=== PATIENT | female | born 1960 | race Caucasian/White ===

== ENCOUNTER 2022-08-07 13:05 | Outpatient (CLI) | payer OTHER | END 2022-08-07 23:59 | disposition home or self-care (01) | LOC: LAB 13:05 | PROVIDERS: ATTEND Specialist | DX: Z75.3 Unavailability and inaccessibility of health-care facilities (principal) ==

== ENCOUNTER 2022-08-11 15:31 | Outpatient (CLI) | payer OTHER | END 2022-08-11 23:59 | disposition home or self-care (01) | LOC: LAB 15:31 | PROVIDERS: ATTEND Specialist | DX: Z01.812 Encounter for preprocedural laboratory examination (principal); Z20.822 Contact with and (suspected) exposure to COVID-19 | CPT/HCPCS: U0003; C9803 ==

== ENCOUNTER 2022-08-14 05:14 | Inpatient (IN) | payer OTHER ==
[~2022-08-14 05:14] MED LIST: ANESTHESIA TRAY IN PYXIS 1 EA TRAY MC ONE
[2022-08-14] MEDS ORDERED: MIDAZOLAM HCL 2 MG/2ML VIAL ONE (05:51)
[2022-08-14] MEDS ORDERED: HYDROMORPHONE INJ 2 MG/ML DISP.SYRIN ONE (05:51)
[2022-08-14] MEDS ORDERED: FENTANYL PF 250MCG/5ML AMPUL ONE (05:51)
[2022-08-14] MEDS ORDERED: BUPIVACAINE 0.5 % PF 150 MG/30 ML VIAL ONE ×2 (05:52→05:59)
[2022-08-14] MEDS ORDERED: FAMOTIDINE/PF INJ 20 MG/2 ML VIAL IV ONE (05:53)
[2022-08-14] MEDS ORDERED: ROCURONIUM BROMIDE 50 MG/5 ML ONE (05:53)
[2022-08-14] MEDS ORDERED: POLYMYXIN B SULFATE 500,000 UNITS ONE (05:59)
--- NOTE | 2022-08-14 06:05 | NUR ---
MS IT HELP DESK TECHNICIAN NOTE PATIENT ARRIVED TO THE UNIT AT AROUND 0540 FOR SCHEDULED LEFT SHOULDER TOTAL ARTHROPLASTY UNDER DR. CHEUNG. PATIENT IS ALERT AND ORIENTED X4. ABLE TO COMMUNICATE NEED WITH THE STAFFS. AFEBRILE AND NOT IN NAY FORM OF ACUTE DISTRESS. PER PATIENT, SHE'S BEEN FATING SINCE 2300 LAST NIGHT (NO FOOD AND WATER). PATIENT STATES THAT SHE IS ALLERGIC TO LUNESTA, LATEX AND STEROIDS. EXPLAINED PRE OP PROCEDURE AND CONSENT SIGNED AND SECURED. CHANGED TO HOSPITAL GOWN. VITALS TAKEN AND FOLLOWS: BP- 150/80, P- 96, T- 98.8, O2 SAT ON RA- 98%, BG- 104. INSERTED IV ACCESS ON R FOREARM 20G X1. PATIENT TOLERATED WELL. REPORT GIVEN TO OR STAFF. PATIENT WAS PICKED UP AT AROUND 0615 IN STABLE CONDITION WITH SOME OF HER BELONGINGS AND ACCOMPANIED BY HER MOM.
[2022-08-14] MEDS ORDERED: TRANEXAMIC ACID 3,000 MG in SODIUM CHLORIDE IRRIG SOLUTION 70 ML IR ONE (07:00)
[2022-08-14] MEDS ORDERED: ACETAMINOPHEN 325 MG TABLET PO PRN ×3 (09:30→18:30)
[2022-08-14] MEDS ORDERED: HYDROCODONE/APAP 5/325MG TABLET PO PRN ×2 (09:30→18:30)
[2022-08-14] MEDS ORDERED: ONDANSETRON HCL/PF 4 MG/2 ML VIAL IV PRN (10:00)
[2022-08-14] MEDS ORDERED: DOCUSATE SODIUM 250 MG CAPSULE PO PRN (10:00)
[2022-08-14] MEDS ORDERED: BISACODYL SUPP (10 MG) 10 MG/SUPP.RECT SUPP.RECT RC PRN (10:00)
[2022-08-14] MEDS ORDERED: SENNOSIDES 8.6 MG TABLET PO PRN (10:00)
--- NOTE | 2022-08-14 10:00 | NUR ---
MS RN NOTE: RECEIVED PATIENT FROM NITIN MANN. PT AAOX4. ABLE TO MAKE NEEDS KNOWN. ABLE TO DENY PAIN OR DISCOMFORT. ON 2LPM NC. NO SOB NO DYSPNEA. LEFT SHOULDER SITE WITH DRESSING AND MINIMAL BLEEDING. LEFT ARM WITH SHOULDER RESTREPO 2 UNIVERSAL SECURE. LEFT HAND WITH CAPILLARY REFILL <3 SECONDS. V/S B/P 153/87,HR 98, RR 20 TEMP 97.8 O2 99%. REORIENTED PATIENT TO ROOM, SAFETY PRECAUTION OBSERVED. CALL LIGHT WITHIN REACH. PT ABLE TO TOLERATE THIN LIQUIDS. NO ASPIRATION NOTED. HOB ELEVATED. RIGHT FOREARM 20G INTACT. NO S/S OF INFILTRATION NOTED. PATIENT WTIH SUPRAPUBIC PATENT AND INTACT. FLOWING TO CLEAR YELLOW URINE. NO SEDIMENTS NOTED. NO CLOUDINESS. NO HEMATURIA NOTED. WILL CONTINUE TO MONITOR
[2022-08-14] MEDS: IV D5/0.45 NACL 1,000 ML IV SCH ×2 (11:43→22:29)
[2022-08-14] MEDS: ANCEF 1 GM/50 ML D5W IV SCH ×4 (15:33→22:48)
--- NOTE | 2022-08-14 16:23 | NUR ---
RN NOTE CALLED DR. CHEUNG'S OFFICE TO CLARIFY ABOUT PLAN FOR DC. PER [employer]OLEUM MECHANIC DR. CHEUNG IS GONE FOR THE DAY AND THEY WILL HAVE HIS PA CALL ME. I SPOKE TO PATIENT AND HER MOTHER AND THEY SPOKE WITH DR. CHEUNG DAYS PRIOR SURGERY AND THEY AGREED THAT PATIENT WILL STAY THE NIGHT AFTER SURGERY. MEDICATION HAS BEEN SENT TO [facility] AND I ASKED THE ANNA (MOTHER) TO CHECK WHETHER THE MEDICATION IS ALREADY AVAILABLE IN THE PHARMACY.
--- NOTE | 2022-08-14 16:57 | NUR ---
DR. CRAIN AT BEDSIDE.
[2022-08-14] MEDS: AMLODIPINE BESYLATE 2.5 MG TABLET PO SCH (17:29)
[2022-08-14] MEDS ORDERED: HYDROMORPHONE 1 MG/1 ML DISP.SYRIN IV PRN (17:30)
[2022-08-14] MEDS: HYDROCODONE/APAP 10/325MG TABLET PO PRN ×2 (18:20→22:02)
[2022-08-14] MEDS ORDERED: Z GUARD REMEDY 4 OZ OINT TP PRN (18:30)
[2022-08-14] MEDS ORDERED: MAG HYDROX/AL HYDROX/SIMETH 30 ML UDC PO PRN (18:30)
[2022-08-14] MEDS ORDERED: MORPHINE SULFATE INJ 2 MG/ML DISP.SYRIN IV PRN (18:30)
[2022-08-14] MEDS ORDERED: MAGNESIUM HYDROXIDE 30 ML UDC PO PRN (18:30)
[2022-08-14] MEDS ORDERED: ONDANSETRON HCL/PF 4 MG/2 ML VIAL IVP PRN (18:30)
--- NOTE | 2022-08-14 18:32 | NUR ---
MS RN CLOSING NOTE: PATIENT AWAKE IN BED RESTING, A/O X 4. NO S/S OF PAIN NOTED AT THIS TIME. ON ROOM AIR, BREATHING EVEN UNLABORED, NO DISTRESS OR SHORTNESS OF BREATH NOTED. IV ACCESS RFA 20G INTACT, PATENT AND FLUSHING WELL RUNNING D5,1/2NS @ 125ML/HR. SCHEDULE MEDICATIONS GIVEN. PATIENT WAS ENCOURAGED TO TURN AND REPOSITIONED PER PROTOCOL. FALL AND SAFETY MEASURES IN PLACE, BED ALARM ON, BED IN LOW AND LOCK POSITION, CALL LIGHT AND TABLE WITHIN EASY REACH, SIDE RAILS UP X2. ALL NEEDS ATTENDED AND ANTICIPATED. WILL ENDORSE TO ACID PUMP OPERATOR NURSE.
--- NOTE | 2022-08-14 19:31 | NUR ---
RN OPENING NOTES; RECEIVED PT IN BED AAOX4 ABLE TO MAKE NEEDS KNOWN,PEEWEE WELL ON RM AIR SAT 99%,NO SIGN SOB/DISTRESS NOTED,NO COMPLAIN OF PAIN/DISCOMFORT AT THIS TIME,IV ACCESS ON RFA 20G SL,PATENT AND INTACT,SP LEFT TOTAL SHOULDER ARTHROPLASTY,NO BLEEDING NOTED,SAFETY MEASURE IN PLACE,CALL LIGHT WITHIN REACH,WILL CONTINUE TO MONITOR.
[2022-08-14 20:15] VITALS: BP 121/73
[2022-08-14 21:34] LABS: BASOPHILS % (AUTO) 0.2 % (0.0-2.0); EOSINOPHILS % (AUTO) 0.6 % (0.0-6.0); HEMATOCRIT 32 % (33-45); HEMOGLOBIN 10.6 g/dL (11.5-14.8); LYMPHOCYTES # (AUTO) 0.3 K/uL (0.8-4.8); LYMPHOCYTES % (AUTO) 5.5 % (20.0-44.0); MEAN CORPUSCULAR HGB CONC 33 g/dl (31.0-36.0); MEAN CORPUSCULAR VOLUME 102 fL (82-100); MONOCYTES # (AUTO) 0.4 K/uL (0.1-1.30); NEUTROPHILS % (AUTO) 86.7 % (43.0-81.0); PLATELET COUNT (AUTO) 154 K/uL (150-450); RED BLOOD CELL COUNT(AUTO) 3.15 MIL/uL (4.0-5.2); WHITE BLOOD COUNT (AUTO) 5.8 K/uL (4.3-11.0)
[2022-08-14 21:59] LABS: ALBUMIN 3.2 g/dL (3.4-5.0); BILIRUBIN,TOTAL 0.4 mg/dL (0.2-1.0); CALCIUM, SERUM 7.8 mg/dL (8.5-10.1); CREATININE 0.8 mg/dL (0.6-1.3); THYROID STIMULATING HORMONE 6.521 uIU/mL (0.358-3.74); TOTAL PROTEIN, SERUM 5.9 g/dL (6.4-8.2)
[2022-08-14 22:06] LABS: MAGNESIUM 1.2 mg/dL (1.8-2.4)
--- NOTE | 2022-08-14 22:10 | NUR ---
RN NOTES; PT COMPLAINED OF LT SHOULDER PAIN 11/24,PRN NORCO 10-325MG WAS GIVEN.NO A/R NOTED.
--- NOTE | 2022-08-15 02:10 | NUR ---
RN NOTES; PT COMPLAINED OF LT SHOULDER PAIN 11/24,PRN NORCO 10-325MG WAS GIVEN.NO A/R NOTED.
[2022-08-15] MEDS: HYDROCODONE/APAP 10/325MG TABLET PO PRN ×3 (02:11→13:32)
[2022-08-15] MEDS: IV D5/0.45 NACL 1,000 ML IV SCH ×2 (02:13→12:11)
[2022-08-15] MEDS: AMLODIPINE BESYLATE 2.5 MG TABLET PO SCH (05:26)
--- NOTE | 2022-08-15 06:16 | NUR ---
RN CLOSING NOTES; PATIENT N BED AAOX4 ABLE TO MAKE NEEDS KNOWN,PEEWEE WELL ON RM AIR SAT 98%,NO SIGN SOB/DISTRESS NOTED,DUE MEDS GIVEN ORDER,ALL NEEDS ATTENDED,IV ACCESS ON RFA 20G WITH D5 1/2NS 125ML/HR INFUSING WELL,PT WAS ASKING PAIN MEDS ROUTINELY,SP LEFT TOTAL SHOULDER ARTHROPLASTY,NO BLEEDING NOTED,SAFETY MEASURE IN PLACE,CALL LIGHT WITHIN REACH,WILL ENDORSED TO NEXT SHIFT.
--- NOTE | 2022-08-15 07:30 | NUR ---
MS RN OPENING NOTES RECEIVED PT LYING IN BED IN SEMI-FOWLERS POSITION. AO X4. ON RA BREATHING NORMALLY. IV ACCESS ON RFA 20 G SL. PT ON BRP, SUPRAPUBIC CATHETER IN PLACED. SCD ON BLE. COMPLAINTS OF PAIN 10/10 ON LEFT SHOULDER POSTOP. WILL CHECK PAIN MEDS DUE. FALL SAFETY MEASURES IN PLACED AND MAINTAIN AT ALL TIMES. BED IN LOW AND LOCK POSITION. CALL LIGHT WITHIN REACH. SIDE RAILS UP X2. WILL CONTINUE TO MONITOR.
[2022-08-15 08:03] LABS: BASOPHILS % (AUTO) 0.1 % (0.0-2.0); EOSINOPHILS % (AUTO) 0.5 % (0.0-6.0); HEMATOCRIT 32 % (33-45); HEMOGLOBIN 10.8 g/dL (11.5-14.8); LYMPHOCYTES # (AUTO) 0.4 K/uL (0.8-4.8); LYMPHOCYTES % (AUTO) 7.5 % (20.0-44.0); MEAN CORPUSCULAR HGB CONC 33 g/dl (31.0-36.0); MEAN CORPUSCULAR VOLUME 103 fL (82-100); MONOCYTES # (AUTO) 0.4 K/uL (0.1-1.30); MONOCYTES % (AUTO) 7.7 % (2.0-12.0); NEUTROPHILS # (AUTO) 4.8 K/uL (1.8-8.9); NEUTROPHILS % (AUTO) 84.2 % (43.0-81.0); PLATELET COUNT (AUTO) 139 K/uL (150-450); RED BLOOD CELL COUNT(AUTO) 3.15 MIL/uL (4.0-5.2); WHITE BLOOD COUNT (AUTO) 5.7 K/uL (4.3-11.0)
[2022-08-15 08:24] VITALS: BP 120/68
[2022-08-15 08:33] LABS: CALCIUM, SERUM 7.6 mg/dL (8.5-10.1); CREATININE 0.5 mg/dL (0.6-1.3); MAGNESIUM 1.3 mg/dL (1.8-2.4); PHOSPHORUS 2.8 mg/dL (2.5-4.9); POTASSIUM 2.9 mmol/L (3.5-5.1)
[2022-08-15] MEDS ORDERED: ASPIRIN 325 MG TABLET PO SCH (09:00)
[2022-08-15] MEDS ORDERED: Magnesium 1GM/D5W 100ML PREMIX 100 ML IV SCH (09:00)
[2022-08-15] MEDS ORDERED: POTASSIUM CHLORIDE 20 MEQ TAB.PRT.SR PO ONE (09:00)
[2022-08-15] MEDS ORDERED: ATOR10TA PO (10:22)
[2022-08-15] MEDS ORDERED: AMLO-212 PO (10:22)
[2022-08-15] MEDS ORDERED: ALLO100T PO (10:22)
[2022-08-15] MEDS ORDERED: BUDE10.2 INH (10:22)
[2022-08-15] MEDS ORDERED: TRAM50TA2 PO (10:22)
[2022-08-15] MEDS ORDERED: ASPI-992 PO (11:43)
[2022-08-15] MEDS ORDERED: DOCU250C14 PO (11:43)
--- NOTE | 2022-08-15 15:40 | NUR ---
PATIENT DISCHARGED IN STABLE CONDITION. AO X4. V/S STABLE, NO SIGNS OF DISTRESS. SLING ON LEFT ARM IN PLACE. IV ACCESS REMOVED PRIOR DISCHARGE. SKIN INTACT, NO ACTIVE BLEEDING. ALL BELONGINGS CHECKED AND RECONCILED. PATIENT EDUCATION AND HEALTH TEACHINGS DONE. DISCUSSED HOME MEDS TO CONTINUE PRESCRIBED. INSTRUCTED TO FOLLOW UP WITH PCP AND RETURN TO ER INCASE OF EMERGENCY. PATIENT LEFT VIA WHEELCHAIR WITH NO SIGNS AND SYMPTOMS OF DISTRESS. ACCOMPANIED BY RN TO THE LOBBY. PICKED UP BY MOTHER VIA PRIVATE CAR. CHARGE NURSE AWARE.
[2022-08-15] MEDS ORDERED: FLUTICASONE/VILANTEROL 1 EACH BLST.W.DEV IH SCH (21:00)
== END 2022-08-15 15:32 | disposition home health service (06) | DRG 483 ==
LOC: DS 05:14 → MED 05:15
PROVIDERS: ADMIT Specialist; ATTEND Specialist
PROC: 0RRK00Z Replacement of Left Shoulder Joint with Reverse Ball and Socket Synthetic Substitute, Open Approach (ICD-10-PCS; principal; 2022-08-14)
PROC: 0LS40ZZ Reposition Left Upper Arm Tendon, Open Approach (ICD-10-PCS; principal; 2022-08-14)
DX: M87.812 Other osteonecrosis, left shoulder (principal); I10 Essential (primary) hypertension; E78.5 Hyperlipidemia, unspecified; M19.012 Primary osteoarthritis, left shoulder; S43.082A Other subluxation of left shoulder joint, initial encounter; Y99.0 Civilian activity done for income or pay; X58.XXXA Exposure to other specified factors, initial encounter; Y93.89 Activity, other specified; Y92.89 Other specified places as the place of occurrence of the external cause; J45.909 Unspecified asthma, uncomplicated; M10.9 Gout, unspecified; Z85.51 Personal history of malignant neoplasm of bladder; E78.00 Pure hypercholesterolemia, unspecified; Z88.8 Allergy status to other drugs, medicaments and biological substances; Z87.440 Personal history of urinary (tract) infections; Z91.040 Latex allergy status
CPT/HCPCS: 36415; 80048-TC; 80053-TC; 80061-TC; 82962-TC; 83735-TC; 84100-TC; 84443-TC; 85025-TC; 87081-TC; 88305-TC; 88311-TC; 97116-TC; 97530-TC; A4217; A6209; C1776; G0378; J0690; J1170; J2250; J2405; J2704; J2765; J3010; J3475; J3490; J7030; J7060